=== PATIENT | male | born 1980 ===

== ENCOUNTER 2021-05-25 16:37 | Inpatient (IN) | payer MEDICAID ==
[~2021-05-25] VITALS: Ht 172.7 cm; Wt 93.0 kg
[2021-05-25 19:04] LABS: Albumin 3.6 g/dL (3.4-5.0); BUN/Creatinine Ratio 7.6; Calcium 8.4 mg/dL (8.5-10.1); Magnesium 1.5 mg/dL (1.6-2.6); Potassium 3.1 mmol/L (3.5-5.1)
[2021-05-25 19:07] LABS: Basophils # (auto) 0 10 ^3/uL (0-0.2); Basophils % (auto) 0.8 % (0.0-2.0); Eosinophils # (auto) 0 10 ^3/uL (0-0.8); Eosinophils % (auto) 0.2 % (0.0-7.0); Hematocrit 42.5 % (41.0-53.0); Hemoglobin 14.3 g/dL (13.5-17.5); Lymphocytes # (auto) 0.3 10 ^3/uL (0.4-5.4); Lymphocytes % (auto) 14.2 % (10.0-50.0); Mean Corpuscular Hemoglobin 29.6 pg (28.0-32.0); Mean Corpuscular Hgb Conc. 33.7 g/dL (32.0-36.0); Mean Corpuscular Volume 87.7 fL (80.0-100.0); Monocytes # (auto) 0.3 10 ^3/uL (0-1.3); Monocytes % (auto) 10.3 % (0.0-12.0); Neutrophils # (auto) 1.8 10 ^3/uL (1.6-8.6); Neutrophils % (auto) 74.5 % (37.0-80.0); Nucleated Red Blood Cells % 0.2 %; Red Blood Cells 4.85 10^6/uL (4.5-5.90); Red Cell Distribution Width 15.2 % (11.8-14.3); White Blood Cell 2.4 10^3/uL (4.4-10.8)
[2021-05-25 19:13] LABS: Bilirubin, Total 1.1 mg/dL (0.2-1.0); Total Protein 7.8 g/dL (6.4-8.2)
[2021-05-25] MEDS ORDERED: POTASSIUM EFFERVESENT TAB 25 MEQ PO ONE (20:00)
[2021-05-25] MEDS ORDERED: POTASSIUM CHL 20MEQ/100ML 100 ML IV ONE (20:00)
[2021-05-26] MEDS ORDERED: HYDROcodone-ACET 5/325MG TAB PO PRN (00:45)
[2021-05-26] MEDS ORDERED: MAGNESIUM SULFATE 1GM/100ML 100 ML IV ONE (00:45)
[2021-05-26] MEDS ORDERED: ACETAMINOPHEN 325 MG TAB PO PRN (00:45)
[2021-05-26 02:00] VITALS: BP 138/73
[2021-05-26] MEDS ORDERED: ONDANSETRON HCL 4 MG/2 ML VIAL IV SCH (06:00)
[2021-05-26] MEDS ORDERED: ASPirin-EC 81 mg tab PO SCH (10:00)
[2021-05-26] MEDS ORDERED: FAMOTIDINE 20 MG TAB PO SCH (10:00)
[2021-05-26] MEDS ORDERED: ATORVASTATIN 20 MG TAB PO SCH (22:00)
== END 2021-05-26 03:07 | disposition left against medical advice (07) | DRG 47 ==
LOC: EDBD 16:37 → ER 16:37 → TELE 05-26 00:44
PROVIDERS: ADMIT Nurse Practitioner Family; ATTEND Nurse Practitioner Family
DX: G45.9 Transient cerebral ischemic attack, unspecified (principal); D72.819 Decreased white blood cell count, unspecified; E83.42 Hypomagnesemia; E87.6 Hypokalemia; I16.0 Hypertensive urgency; R55 Syncope and collapse; Z20.822 Contact with and (suspected) exposure to COVID-19; Z53.29 Procedure and treatment not carried out because of patient's decision for other reasons; I10 Essential (primary) hypertension; E66.01 Morbid (severe) obesity due to excess calories; Z68.31 Body mass index [BMI] 31.0-31.9, adult
CPT/HCPCS: 36415; 70450; 71046; 80053; 83735; 84484; 85025; 93005; 96365; 96367; G0378; J3480